=== PATIENT | female | born 1970 | race Caucasian/White ===

== ENCOUNTER → 2017-03-06 | Outpatient (CLI) | payer BC ==
[~2017-03-06] MED LIST: NUVARING1 ICR VG; ZOLOFT20 MG/ML PO
== END ==
LOC: MC.RAD 10:20
DX: Z12.31 Encounter for screening mammogram for malignant neoplasm of breast (principal)

== ENCOUNTER 2018-12-12 08:13 | Emergency (ER) | payer BC ==
[~2018-12-12] VITALS: Ht 160 cm; Wt 100.9 kg
[2018-12-12 08:17] VITALS: TEMP 97.8
[2018-12-12 09:04] LABS: COLLECTION METHOD CLEAN CATCH
[2018-12-12 09:13] LABS: BASO % 0.3 % (0.0-2.0); EOS % 0.4 % (0-4.0); GRAN # 7.1 (1.4-6.5); HEMATOCRIT 40.4 % (37.0-47.0); HEMOGLOBIN 13.6 g/dl (12.5-16.0); LYMPH # 2.2 (1.2-3.4); LYMPH % 22.2 % (20.0-51.0); MEAN CELL VOLUME 88 fl (80.0-100.0); MEAN CORPUSCULAR HEMOGLOBIN 30 pg (27.0-31.0); MEAN CORPUSCULAR HGB CONC 34 g/dl (33.0-37.0); MEAN PLATELET VOLUME 9.4 fl (7.4-10.4); MONO # 0.6 (0.1-0.6); MONO % 5.7 % (1.7-9.3); PLATELET COUNT 312 K/mm3 (130-400); RED BLOOD COUNT 4.61 M/mm3 (4.10-5.30); REDCELL DISTRIBUTION WIDTH-CV 13.5 % (11.5-14.5)
[2018-12-12 09:17] LABS: ALBUMIN 3.9 gm/dL (3.5-5.0); BILIRUBIN,TOTAL 0.5 mg/dL (0.0-1.0); CALCIUM 8.8 mg/dL (8.4-10.2); CREATININE, serum 0.47 mg/dL (0.52-1.25); POTASSIUM 4.1 mmol/L (3.4-5.0); TOTAL PROTEIN 7.1 gm/dL (6.4-8.2)
[2018-12-12 09:25] LABS: MUCOUS Present /lpf; PH 6 (5-8); URINE APPEARANCE Hazy; URINE BACTERIA None Seen /hpf; URINE BILIRUBIN Negative (NEGATIVE); URINE BLOOD 3+ (NEGATIVE); URINE COLOR Yellow; URINE GLUCOSE Negative (NEGATIVE); URINE KETONE Negative (NEGATIVE); URINE LEUKOCYTE ESTERASE Negative (NEGATIVE); URINE NITRATE Negative (NEGATIVE); URINE PROTEIN(semi-quant) 2+ (NEGATIVE); URINE RBC >50 /hpf; URINE UROBILINOGEN Negative (NEGATIVE)
[2018-12-12] MEDS ORDERED: NORCO 325 MG-51 TAB PO (10:57)
[2018-12-12] MEDS ORDERED: FLOMAX 0.40.4 MG/CAP PO (10:57)
[2018-12-12] MEDS ORDERED: ZOFRAN ODT4 MG PO (10:57)
[2018-12-12 11:06] VITALS: BP 138/59; PULSE 76
[2018-12-13] MEDS ORDERED: TYLENOL 500MG500 MG PO (16:39)
== END 2018-12-12 11:16 | disposition home or self-care (01) ==
LOC: COL.ER 08:13
PROVIDERS: Emergency Medicine
DX: N20.1 Calculus of ureter (principal); Z98.890 Other specified postprocedural states
CPT/HCPCS: J1885; J2405; J3010; J7030; Q9967

== ENCOUNTER 2018-12-13 16:04 | Day surgery (SDC) | payer BC ==
[2018-12-13] VITALS (7 sets, daily range): BP systolic 131–155; BP diastolic 54–88; PULSE 80–84; TEMP 97.4–99.3
[~2018-12-13] VITALS: Ht 160 cm; Wt 100.0 kg
[~2018-12-13 16:04] MED LIST changes: +FLOMAX 0.40.4 MG/CAP PO; +NORCO 325 MG-51 TAB PO; +ZOFRAN ODT4 MG PO
[2018-12-13] MEDS ORDERED: TYLENOL 500MG500 MG PO (16:39)
--- NOTE | 2018-12-13 18:35 | NUR ---
Patient to Or with Jyoti & Cynthia Pacu nurses. Patient consent was obtained-SHe verbalized understanding. Iv started by Yeimi LUX. Patient assessment & med rec was also completed BY yeimi LUX.
--- NOTE | 2018-12-13 20:00 | NUR ---
Received per bed from PACU post Cysto with lithotripsy and stent placement. Patient voids upon arrival of 250cc of yellow urine. Is alert and oriented x3. Denies pain. IVF infusing to left hand without redness or swelling. Denies hunger, takes water.
--- NOTE | 2018-12-13 21:45 | NUR ---
Patient reports no pain, ready to go home. Up to void another time for 150cc of urine with sediment. DC'd IV site from left hand. Discharge instructions reviewed with patient, she will call for appointment on Sunday. Instructed to removed ureteral stent in 48hrs.
--- NOTE | 2018-12-13 22:00 | NUR ---
Discharged per ambulatory status to private car. Accompanied by surgical staff. Personal belongings and discharge instructions returned to patient.
== END 2018-12-13 22:00 | disposition home or self-care (01) ==
LOC: SDCO 16:04 → JCC 16:08 → SDCO 20:00
DX: N20.1 Calculus of ureter (principal)
CPT/HCPCS: OP; C1769; C2617; J0690; J2405; J2704; J3010; Q9967

== ENCOUNTER 2018-12-16 22:38 | Emergency (ER) | payer BC ==
[~2018-12-16] VITALS: Ht 160 cm; Wt 100.9 kg
[~2018-12-16 22:38] MED LIST changes: +TYLENOL 500MG500 MG PO
[2018-12-16 22:45] VITALS: TEMP 98.4
[2018-12-16 23:12] LABS: COLLECTION METHOD CLEAN CATCH
[2018-12-16 23:27] LABS: MUCOUS Present /lpf; PH 6 (5-8); URINE APPEARANCE Hazy; URINE BACTERIA None Seen /hpf; URINE BILIRUBIN Negative (NEGATIVE); URINE BLOOD 3+ (NEGATIVE); URINE COLOR Yellow; URINE GLUCOSE Negative (NEGATIVE); URINE KETONE Negative (NEGATIVE); URINE LEUKOCYTE ESTERASE Negative (NEGATIVE); URINE NITRATE Negative (NEGATIVE); URINE PROTEIN(semi-quant) 2+ (NEGATIVE); URINE RBC >50 /hpf; URINE UROBILINOGEN Negative (NEGATIVE)
[2018-12-16 23:34] LABS: BASO % 0.2 % (0.0-2.0); EOS # 0.1 (0.0-0.7); EOS % 0.4 % (0-4.0); GRAN # 9.9 (1.4-6.5); GRAN % 74.6 % (42.2-75.2); HEMATOCRIT 39.7 % (37.0-47.0); HEMOGLOBIN 13.5 g/dl (12.5-16.0); LYMPH # 2.5 (1.2-3.4); LYMPH % 18.5 % (20.0-51.0); MEAN CELL VOLUME 87 fl (80.0-100.0); MEAN CORPUSCULAR HEMOGLOBIN 30 pg (27.0-31.0); MEAN CORPUSCULAR HGB CONC 34 g/dl (33.0-37.0); MEAN PLATELET VOLUME 9.6 fl (7.4-10.4); MONO # 0.8 (0.1-0.6); MONO % 5.9 % (1.7-9.3); PLATELET COUNT 301 K/mm3 (130-400); RED BLOOD COUNT 4.55 M/mm3 (4.10-5.30); REDCELL DISTRIBUTION WIDTH-CV 13.5 % (11.5-14.5)
[2018-12-16 23:41] LABS: ALBUMIN 3.8 gm/dL (3.5-5.0); BILIRUBIN,TOTAL 0.2 mg/dL (0.0-1.0); CALCIUM 8.7 mg/dL (8.4-10.2); CREATININE, serum 0.52 mg/dL (0.52-1.25); TOTAL PROTEIN 7.2 gm/dL (6.4-8.2)
[2018-12-17] MEDS ORDERED: ZOFRAN ODT8 MG PO (00:28)
[2018-12-17] MEDS ORDERED: NORCO 325 MG-7.1 TAB PO (00:28)
[2018-12-17 00:55] VITALS: BP 154/64; PULSE 66
== END 2018-12-17 00:55 | disposition home or self-care (01) ==
LOC: COL.ER 22:38
PROVIDERS: Physician Assistant
DX: N20.0 Calculus of kidney (principal); Z96.0 Presence of urogenital implants
CPT/HCPCS: J1170; J1885; J2405; J7030

== ENCOUNTER → 2019-03-04 | Outpatient (CLI) | payer BC ==
[~2019-03-04] MED LIST changes: +NORCO 325 MG-7.1 TAB PO; +ZOFRAN ODT8 MG PO
== END ==
LOC: MC.RAD 08:00
DX: Z12.31 Encounter for screening mammogram for malignant neoplasm of breast (principal)

== ENCOUNTER 2023-11-16 07:29 | Day surgery (SDC) | payer BC ==
[~2023-11-16] VITALS: Ht 162.6 cm; Wt 97.3 kg
[~2023-11-16 07:29] MED LIST changes: +LR 1,000 ML IV SCH; +Ondansetron 4 MG/2 ML VIAL IV PRN
[2023-11-16] MEDS ORDERED: DESYREL 50MG50 MG PO (08:03)
[2023-11-16] MEDS ORDERED: MULTI-VITAMIN W1 TA1 PO (08:04)
[2023-11-16 08:29] VITALS: BP 138/82; PULSE 97; TEMP 97.6
[2023-11-16] MEDS ORDERED: Lidocaine PF 2% (20 MG/ML) 5 ML VIAL ONE (08:59)
[2023-11-16 09:26] VITALS: BP 145/69; PULSE 78; TEMP 97.2
[2023-11-16 09:41] VITALS: BP 172/76; PULSE 75
--- NOTE | 2023-11-16 13:43 | NUR ---
0926 PT RETURNED TO BAY 2 POST PROCEDURE. RECEIVED REPORT FROM JOSE J WALTON. PT IS ALERT AND ORIENTED, BREATHING EVEN AND UNLABORED, ABLE TO AMBULATE FROM CART TO RECLINER. 0933 PT GIVEN A MUFFIN AND JUICE FOR PO CHALLENGE. PT TOLERATED WELL. 0940 DR KATZ IN TO UPDATE PT ON FINDINGS AND PLAN FOR CARE. 0955 PRINTED PHYSICIAN DISCHARGE INSTRUCTIONS AND PATIENT EDUCATIONAL MATERTERIAL REVIEWED WITH PT. QUESTIONS INVITED AND ANSWERED. 1010 PT TO LOBBY VIA WHEEL CHAIR FOR A RIDE HOME WITH HER DAUGHTER IN POV.
== END 2023-11-16 10:10 | disposition home or self-care (01) ==
LOC: SDCO 07:29
DX: Z12.11 Encounter for screening for malignant neoplasm of colon (principal); E66.9 Obesity, unspecified
CPT/HCPCS: J2704; J7120